=== PATIENT | female | born 1970 | race Two or more races ===

== ENCOUNTER 2017-10-22 17:18 | Emergency (ER) | payer SELFPAY ==
[~2017-10-22] VITALS: Ht 152.4 cm; Wt 56.0 kg
[2017-10-22 20:48] VITALS: BP 120/78
== END 2017-10-22 20:49 | disposition home or self-care (01) ==
LOC: ER 19:33
DX: S90.112A Contusion of left great toe without damage to nail, initial encounter (principal); F17.200 Nicotine dependence, unspecified, uncomplicated; F12.10 Cannabis abuse, uncomplicated; F10.20 Alcohol dependence, uncomplicated; W19.XXXA Unspecified fall, initial encounter; Y93.51 Activity, roller skating (inline) and skateboarding; Y92.89 Other specified places as the place of occurrence of the external cause; Y99.8 Other external cause status
CPT/HCPCS: 73630; 81025; 99284